=== PATIENT | female | born 1995 | race Caucasian/White ===

== ENCOUNTER 2019-11-22 06:45 | Inpatient (IN) | payer OTHER ==
[~2019-11-22] VITALS: Ht 157.5 cm; Wt 82.6 kg
[2019-11-22] MEDS ORDERED: PRENATAL TABLE1 EAC3 PO (08:29)
== END 2019-11-24 14:04 | DRG 798 ==
LOC: LDR 06:45 → OB/GYN 06:45 → LDR 08:12 → OB/GYN 19:36
PROVIDERS: ADMIT Obstetrics & Gynecology
PROC: 10E0XZZ Delivery of Products of Conception, External Approach (ICD-10-PCS; principal; 2019-11-22)
PROC: 0UQMXZZ Repair Vulva, External Approach (ICD-10-PCS; 2019-11-22)
PROC: 4A1HXCZ Monitoring of Products of Conception, Cardiac Rate, External Approach (ICD-10-PCS; 2019-11-22)
PROC: 4A033R1 Measurement of Arterial Saturation, Peripheral, Percutaneous Approach (ICD-10-PCS; 2019-11-22)
PROC: 3E033VJ Introduction of Other Hormone into Peripheral Vein, Percutaneous Approach (ICD-10-PCS; 2019-11-22)
PROC: 0UB70ZZ Excision of Bilateral Fallopian Tubes, Open Approach (ICD-10-PCS; 2019-11-23)
DX: O71.82 Other specified trauma to perineum and vulva (principal); Z37.0 Single live birth; Z3A.39 39 weeks gestation of pregnancy; Z30.2 Encounter for sterilization